=== PATIENT | female | born 1985 | race Caucasian/White ===

== ENCOUNTER 2017-10-28 12:06 | Emergency (ER) | payer OTHER ==
[2017-10-28] MEDS ORDERED: NS 1,000 ML IV ONE (12:59)
--- NOTE | 2017-10-28 13:19 | EDPHY ---
H & P Stated Complaint: greenish/ red vaginal discharge. pain "stings." body aches. diarrhea. Time Seen by Provider: 10/28/17 12:49 HPI/ROS: CHIEF COMPLAINT: Vaginal discharge and pelvic/low back pain HISTORY OF PRESENT ILLNESS: The patient is a 32-year-old female who comes to the emergency department complaining of unusual vaginal discharge as well as pelvic and bilateral CVA pain. She states that she finished her period about 7 days ago and had some intermittent bleeding since which is not unusual. Is then about 3 days ago she started having increased discharge and pain and today the discharge was greenish. She also has bilateral CVA pain and had some urinary discomfort which resolved 2 days ago. She has not had a fever. She has not had any constipation or diarrhea. She does feel slightly bloated. She denies risk of . She does not think she left any tampon in place. She had diverticulitis at 1 point that she states she has felt somewhat similar but certainly no discharge at that time. REVIEW OF SYSTEMS: Constitutional: denies: chills, fever, recent illness, recent injury EENTM: denies: blurred vision, double vision, nose congestion Respiratory: denies: cough, shortness of breath Cardiac: denies: chest pain, irregular heart rate, lightheadedness, palpitations Gastrointestinal/Abdominal: See HPI Genitourinary: See HPI Musculoskeletal: denies: joint pain, muscle pain Skin: denies: lesions, rash, jaundice, bruising Neurological: denies: headache, numbness, paresthesia, tingling, dizziness, weakness Hematologic/Lymphatic: denies: blood clots, easy bleeding, easy bruising Immunologic/allergic: denies: HIV/AIDS, transplant EXAM: GENERAL: Well-appearing, well-nourished and in no acute distress. HEAD: Atraumatic, normocephalic. EYES: Pupils equal round and reactive to light, extraocular movements intact, sclera anicteric, conjunctiva are normal. ENT: TMs normal, nares patent, oropharynx clear without exudates. Moist mucous membranes. NECK: Normal range of motion, supple without lymphadenopathy or JVD. LUNGS: Breath sounds clear to auscultation bilaterally and equal. No wheezes rales or rhonchi. HEART: Regular rate and rhythm without murmurs, rubs or gallops. ABDOMEN: Soft, nontender, normoactive bowel sounds. No guarding, no rebound. No masses appreciated. : Cervical motion tenderness, clear discharge with slight streaking white/ greenish from the cervix. No adnexal masses or bleeding, no foreign body BACK: Slight CVA tenderness to percussion, no spinal tenderness, step-offs or deformities EXTREMITIES: Normal range of motion, no pitting or edema. No clubbing or cyanosis. NEUROLOGICAL: Cranial nerves II through XII grossly intact. Normal speech, normal gait. 5/5 strength, normal movement in all extremities, normal sensation PSYCH: Normal mood, normal affect. SKIN: Warm, dry, normal turgor, no visible rashes or lesions. Source: Patient Exam Limitations: No limitations - Personal History LMP (Females 10-55): 1-7 Days Ago Current Tetanus/Diphtheria Vaccine: Yes Current Tetanus Diphtheria and Acellular Pertussis (TDAP): Yes - Medical/Surgical History Hx Asthma: No Hx Chronic Respiratory Disease: No Hx Diabetes: No Hx Cardiac Disease: No Hx Renal Disease: No Hx Cirrhosis: No Hx Alcoholism: No Hx HIV/AIDS: No Hx Splenectomy or Spleen Trauma: No Other PMH: pmh: diverticulitis. psh:5 births no c sections, - Family History Significant Family History: No pertinent family hx - Social History Smoking Status: Never smoked Alcohol Use: Sober Drug Use: None Constitutional: Initial Vital Signs Temperature (C) 36.5 C 10/28/17 12:24 Heart Rate 78 10/28/17 12:24 Respiratory Rate 16 10/28/17 12:24 Blood Pressure 124/77 H 10/28/17 12:24 O2 Sat (%) 99 10/28/17 12:24 O2 Delivery Mode Room Air Allergies/Adverse Reactions: latex Allergy (Verified 10/28/17 12:28) msg Allergy (Uncoded 10/28/17 12:28) Home Medications: Medication Instructions Recorded Fluconazole [Diflucan (*)] 150 mg PO ONCE #1 tab 10/28/17 metroNIDAZOLE [Flagyl] 500 mg PO BID #20 tab 10/28/17 Medical Decision Making - Diagnostics Imaging Results: Imaging Impressions Pelvic/Renal Ultrasound 10/28/17 13:00 Impression: Normal pelvic ultrasound. Dr. Bianchi discussed these findings by telephone with DORIS MUNIZ on 2017 at 1448 hours. Imaging: Discussed imaging studies w/ crew caller Radiologist ED Course/Re-evaluation: 2:50 p.m. We discussed the lab and imaging results which are reassuring. Cultures are not back yet. Patient is reassured however we agreed to treat at this point for STDs although she thinks it is extremely unlikely. We will then have her call tomorrow. I will also treat her for BV and Yeast. Differential Diagnosis: Partial list of the Differential diagnosis considered include but were not limited to; urinary tract infection, yeast infection, bacterial vaginosis and although unlikely based on the history and physical exam, I also considered gonorrhea, chlamydia, cyst, , foreign body. I discussed these differential diagnoses and the plan with the patient as well as the usual and expected course. The patient understands that the diagnosis is provisional and that in medicine we are not always correct and that further workup is often warranted. Usual and customary warnings were given. All of the patient's questions were answered. The patient was instructed to return to the emergency department should the symptoms at all worsen or return, otherwise to followup with the physician as we discussed. - Data Points Laboratory Results: Laboratory Results 10/28/17 13:10 10/28/17 13:10 10/28/17 10/28/17 10/28/17 13:20 13:20 13:10 WBC RBC Hgb Hct MCV MCH MCHC RDW Plt Count MPV Neut % (Auto) Lymph % (Auto) [place] % (Auto) Eos % (Auto) Baso % (Auto) Nucleat RBC Rel Count Absolute Neuts (auto) Absolute Lymphs (auto) Absolute Monos (auto) Absolute Eos (auto) Absolute Basos (auto) Absolute Nucleated RBC Immature Gran % Immature Gran # Sodium 143 mEq/L mEq/L (135-145) Potassium 4.4 mEq/L mEq/L (3.5-5.2) Chloride 106 mEq/L mEq/L (97-110) Carbon Dioxide 24 mEq/l mEq/l (22-31) Anion Gap 13 mEq/L mEq/L (8-16) BUN 10 mg/dL mg/dL (7-23) Creatinine 0.7 mg/dL mg/dL (0.6-1.0) Estimated GFR > 60 Glucose 80 mg/dL mg/dL (70-100) Calcium 9.2 mg/dL mg/dL (8.5-10.4) Urine Color Urine Appearance Urine pH Ur Specific [place] Urine Protein Urine Ketones Urine Blood Urine Nitrate Urine Bilirubin Urine Urobilinogen Ur Leukocyte Esterase Urine RBC Urine WBC Ur Epithelial Cells Urine Mucus Urine Glucose Dotty species DNA Pending C.trachomatis RNA (TMA) Pending Gardnerella DNA Probe Pending N.gonorrhoeae RNA (TMA) Pending Trichomonas DNA Probe Pending 10/28/17 10/28/17 13:10 12:45 WBC 9.08 10^3/uL 10^3/uL (3.80-9.50) RBC 4.79 10^6/uL 10^6/uL (4.18-5.33) Hgb 12.7 g/dL g/dL (12.6-16.3) Hct 39.2 % % (38.0-47.0) MCV 81.8 fL fL (81.5-99.8) MCH 26.5 pg L pg (27.9-34.1) MCHC 32.4 g/dL g/dL (32.4-36.7) RDW 13.5 % % (11.5-15.2) Plt Count 273 10^3/uL 10^3/uL (150-400) MPV 11.6 fL fL (8.7-11.7) Neut % (Auto) 58.4 % % (39.3-74.2) Lymph % (Auto) 31.5 % % (15.0-45.0) [place]ro % (Auto) 6.7 % % (4.5-13.0) Eos % (Auto) 2.4 % % (0.6-7.6) Baso % (Auto) 0.7 % % (0.3-1.7) Nucleat RBC Rel Count 0.0 % % (0.0-0.2) Absolute Neuts (auto) 5.30 10^3/uL 10^3/uL (1.70-6.50) Absolute Lymphs (auto) 2.86 10^3/uL 10^3/uL (1.00-3.00) Absolute Monos (auto) 0.61 10^3/uL 10^3/uL (0.30-0.80) Absolute Eos (auto) 0.22 10^3/uL 10^3/uL (0.03-0.40) Absolute Basos (auto) 0.06 10^3/uL 10^3/uL (0.02-0.10) Absolute Nucleated RBC 0.00 10^3/uL 10^3/uL (0-0.01) Immature Gran % 0.3 % % (0.0-1.1) Immature Gran # 0.03 10^3/uL 10^3/uL (0.00-0.10) Sodium Potassium Chloride Carbon Dioxide Anion Gap BUN Creatinine Estimated GFR Glucose Calcium Urine Color PALE YELLOW Urine Appearance CLEAR Urine pH 5.0 (5.0-7.5) Ur Specific [place] 1.006 (1.002-1.030) Urine Protein NEGATIVE (NEGATIVE) Urine Ketones NEGATIVE (NEGATIVE) Urine Blood NEGATIVE (NEGATIVE) Urine Nitrate NEGATIVE (NEGATIVE) Urine Bilirubin NEGATIVE (NEGATIVE) Urine Urobilinogen NEGATIVE EU EU (0.2-1.0) Ur Leukocyte Esterase NEGATIVE (NEGATIVE) Urine RBC 1-3 /hpf /hpf (0-3) Urine WBC 1-3 /hpf /hpf (0-3) Ur Epithelial Cells TRACE /lpf /lpf (NONE-1+) Urine Mucus TRACE /lpf /lpf (NONE-1+) Urine Glucose NEGATIVE (NEGATIVE) Dotty species DNA C.trachomatis RNA (TMA) Gardnerella DNA Probe N.gonorrhoeae RNA (TMA) Trichomonas DNA Probe Medications Given: Discontinued Medications Azithromycin (Zithromax) 1,000 mg PO EDNOW ONE PRN Reason: Protocol Stop: 10/28/17 14:58 Last Admin: 10/28/17 15:08 Dose: 1,000 mg Sodium Chloride (Ns) 1,000 mls @ 0 mls/hr IV ONCE ONE; Wide Open PRN Reason: Protocol Stop: 10/28/17 13:00 Last Admin: 10/28/17 14:28 Dose: Not Given Ceftriaxone Sodium/Dextrose (Rocephin 1 Gm (Premix)) 50 mls @ 100 mls/hr IV EDNOW ONE PRN Reason: Protocol Stop: 10/28/17 15:26 Last Admin: 10/28/17 15:08 Dose: 50 mls Metronidazole (Flagyl) 500 mg PO EDNOW ONE PRN Reason: Protocol Stop: 10/28/17 15:00 Last Admin: 10/28/17 15:08 Dose: 500 mg Departure - Departure Disposition: Home, Routine, Self-Care Clinical Impression: Cervical discharge Condition: Fair Instructions: Metronidazole (By mouth), Fluconazole (By mouth), Vaginal Discharge (ED) Referrals: Betty Gallardo MD [Primary Care Provider] - As per Instructions Henny Baker MD [Medical Doctor] - 2-3 days, if not improved Prescriptions: Fluconazole [Diflucan (*)] 150 mg PO ONCE #1 tab metroNIDAZOLE [Flagyl] 500 mg PO BID #20 tab
[2017-10-28 13:25] LABS: PLATELET COUNT 273 10^3/uL (150-400)
[2017-10-28 14:37] VITALS: BP 98/57
[2017-10-28] MEDS ORDERED: AZITHROMYCIN 250 MG TAB PO ONE (14:57)
[2017-10-28] MEDS ORDERED: metroNIDAZOLE 500 MG TAB PO ONE (14:59)
[2017-10-29 11:38] LABS: GC AMPLIFICATION GENPROBE NEGATIVE (NEGATIVE)
== END 2017-10-28 15:38 | disposition home or self-care (01) ==
DX: N89.8 Other specified noninflammatory disorders of vagina (principal); Z91.040 Latex allergy status
CPT/HCPCS: 96374; J0696